=== PATIENT | female | born 1970 | race Caucasian/White ===

== ENCOUNTER 2018-01-16 12:01 | Outpatient (REF) | payer BC, SELFPAY ==
[2018-01-16 19:30] LABS: TSH (W/Ref FT4) 2.84 uIU/mL (0.358-3.74)
== END 2018-01-16 12:21 ==
LOC: NCHCN 12:01
PROVIDERS: PCP Family Medicine; Visit Provider Family Medicine
DX: E03.9 Hypothyroidism, unspecified (principal)
CPT/HCPCS: 84443

== ENCOUNTER 2018-02-14 00:24 | Outpatient (CLI) | payer BC, SELFPAY ==
--- NOTE | 2018-02-14 09:16 | DI.MAMMO_ITS ---
SYMPTOM/DIAGNOSIS: SCREENING, Z12.31 BILATERAL SCREENING MAMMOGRAM: Mammograms were interpreted according to the usual protocol including computer analysis with CAD system, tomosynthesis and C view imaging. Comparison is made with exams from 2015 and 2017. The breasts are composed of scattered fibroglandular densities, breast density category B. No suspicious masses or suspicious microcalcifications are seen. There has been no significant change. IMPRESSION: Category 1-B, negative mammogram. Yearly screening mammography is recommended. [facility] ASSESSMENT OF FINDINGS: Negative. Category 1. Patient will receive a letter notifying them of these results. BI-RADS category B. There are scattered areas of fibroglandular density.
== END 2018-02-14 00:44 ==
PROVIDERS: PCP Family Medicine; Visit Provider Family Medicine
DX: Z12.31 Encounter for screening mammogram for malignant neoplasm of breast (principal)
CPT/HCPCS: 77063; 77067

== ENCOUNTER 2019-01-23 11:49 | Outpatient (REF) | payer OTHER, SELFPAY ==
[2019-01-23 18:35] LABS: Hemoglobin A1C 5.4 % (4.5-6.2)
[2019-01-23 18:41] LABS: Calculated LDL 104 mg/dL; Cholesterol 192 mg/dL (<200); HDL Cholesterol 79 mg/dL (40-60); TSH (W/Ref FT4) 1.63 uIU/mL (0.36-3.74); Triglyceride 49 mg/dL (<150)
== END 2019-01-23 12:09 ==
LOC: NCHCN 11:49
PROVIDERS: PCP Family Medicine; Visit Provider Family Medicine
DX: E03.9 Hypothyroidism, unspecified (principal); Z00.00 Encounter for general adult medical examination without abnormal findings; Z13.220 Encounter for screening for lipoid disorders
CPT/HCPCS: 80061; 83036; 84443

== ENCOUNTER 2019-09-15 13:13 | Emergency (ER) | payer OTHER, SELFPAY ==
[2019-09-15 13:24] VITALS: BP 165/90; PULSE 65; TEMP 36.4; O2SAT 99
--- NOTE | 2019-09-15 13:46 | PDOC.CMSAFED ---
- If Service Date Differs Date of service: 09/15/19 Time of Service: 13:46 Care Management Safety Plan Chief Complaint: Alexandria is a 49 year old female who resides in [facility] with her , Jhon. She has a history of 2 psychotic episodes and is not currently on any psychiatric medications. Today, she presents in the emergency department to have recent behavioral changes evaluated. She denies suicidal or homicidal thoughts to ED staff, but reports experiencing many stressors. CM will respond to ED to assess patient after patient has been medically cleared and assessed by screener. If screener deems patient meets criteria for psychiatric stabilization CM will facilitate interdepartmental huddle with [facility] screener for safety planning considerations and meet with patient to review [facility] policy and safety plan, establish individual wishes for treatment and maintain patient rights. In the interim; please note safety plan below to guide patient care while awaiting further assessment in the ED. SAFETY PLAN: 1. Will remain on suicide precautions and in paper clothes. 2. Will remain in room under direct supervision of one-on-one staff at all times provided by [employer], QUIN, [employer] child protective investigator. 3. May have paper cups, plates, finger foods as well as a cardboard spoon with which to eat meals. 4. Follow [facility] Management of the Admitted Behavioral Health Patient policy. 5. Comfort bath system only. 6. No personal belongings 7. Visitors: No visitors at this time. 8. Activities: None currently. 8. No telephone privileges at this time. 9. Due to VOLUNTARY status, if patient wishes to leave [facility], the [facility] plant and equipment worker must be contacted to evaluate patient prior to patient exiting the building. If deemed appropriate for inpatient psychiatric care, safety plan will be established with patient, and care team, to adhere to patient goals, identify restrictions based on behavioral status, address nutrition, and determine allowed personal belongings, tools for hygiene and personal care. As well plan will determine level of activity including ambulation, level of supervision, visitors, and determine privileges based on level of acuity, behaviors and level of engagement by patient. DISPOSITION: Alexandria is evaluated by [facility] crisis screener. She is able to contract for safety and is discharged home.
--- NOTE | 2019-09-15 14:38 | ED.GENADUL_ITS ---
Discharge Plan Disposition Patient Disposition: HOME Condition: Stable Discharge Details Chief Complaint: PsychEval Clinical Impression: Mood change Primary Care Provider: Saige Campos ED Provider: Javier Patterson Home Meds and New Rx's Prescriptions: Continued lorazepam 0.5 mg Tablet 0.5 mg PO DAILY PRNRF: 0 levothyroxine 25 mcg Tablet 25 mcg PO DAILY RF: 0 loratadine [Claritin] 10 mg Tablet 10 mg PO DAILY RF: 0 No Action dextroamphetamine-amphetamine 30 mg Tablet 30 mg PO DAILY RF: 0 Discharge Instructions Additional Instructions: You are stable for discharge from the emergency department. Please follow-up with your regular doctor for recheck in the next 5 to 7 days time. Return if you develop racing thoughts, thoughts of harming yourself or others, or any other acute concerns. I recommend reviewing persistent use of the Adderall with your prescribing physician. Discharge Data Discharge Date/Time-TO BE ENTERED AT DEPARTURE: 09/15/19 16:31 Medical Decision Making <Renita Lincoln MD - Last Filed: 09/21/19 08:24> Alexandria Ray is a 49-year-old woman with a history of 2 psychotic episodes in the past not currently on any psychiatric medications presenting to the emergency department for evaluation for behavioral change after having counseling session this morning with her and mental health. Mental health states that they asked patient to come to the emergency department for medical clearance given that she had relatively recent treatment for dental infection and is scheduled for root canal. On exam patient is well and nontoxic-appearing. There is no emergent dental or intraoral pathology identified. She does have some flight of ideas and tangential conversation, however she makes note of this during conversation and seemed aware of it. She does have some pressured speech and seems excessively goal oriented. Concern for possible mild shari, no psychosis or suicidality on my exam. I doubt that patient is a danger to herself or to others at this time. Exam/history is not consistent with meningitis, encephalitis, acute emergent nonpsychiatric intracranial process, sepsis, ingestion/attempted self-harm. Plan for screening labs, mental health evaluation. Patient signed out to Dr. Patterson at time of shift change with labs, mental health evaluation pending. Medical Records Medical records reviewed: Yes I reviewed the patient's medical records. <Javier Patterson MD - Last Filed: 09/15/19 16:25> Received signout from Dr. Lincoln. Please see her note regarding details of patient's presentation, plan of care. Patient's medical screen examination reassuring. On my exam she has somewhat depressed speech but has cogent and linear thoughts. She has no acute medical condition. Patient was interviewed by divisional storekeeper of mental health screener and felt not to be a danger to herself or others. She was offered outpatient sources for follow-up. She is stable and appropriate for discharge at this time. HPI <Renita Lincoln MD - Last Filed: 09/21/19 08:24> General Mode of arrival: ambulatory . Date/Time Provider Initiated Documentation: 09/15/19 13:16 . Limitations to Documentation: no limitations . Information obtained by: patient, RN notes reviewed and old records reviewed . HPI Narrative: Alexandria Ray is a 49-year-old woman with a history of psychiatric issues in the past presenting to the emergency department for evaluation for change in behavior. Per mental health, patient's is concerned that patient may be having a psychotic break. He reports to mental health who discussed with me that patient had an episode of psychosis in her 20s that was treated with inpatient hospitalization and brief course of psychiatric medication. Patient did not like being on medication at that time and has taken no psychiatric medication since. Patient also had episode of psychosis that lasted for a few weeks approximately 5 years ago that patient believes was brought on by taking prednisone, episode resolved spontaneously. Patient reports that in May she was diagnosed with ADHD and was started on Adderall, which she reports has been helping her concentrate and get more work done. Patient also reports that in May she was diagnosed with a tooth infection, and took a course of antibiotics. Patient reports that she is scheduled to have a root canal in the future. She states that she has had no dental issues since finishing the course of antibiotics in May. Patient denies any pain, shortness of breath, cough, vomiting, diarrhea, numbness, weakness. She reports that she feels well in her usual state of health. 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 Patient denies auditory hallucinations, visual hallucinations, suicidal thoughts, homicidal thoughts. Patient reports that she has been sleeping somewhat less than usual, but generally getting more than 6 hours of sleep per night. She reports that she and her have both been drinking more heavily over the past few months, usually more than 3 drinks per night, and she is interested in cutting back. She reports that she uses marijuana daily. She denies any other recreational drug use. Related Data Home Medications Medication Instructions Recorded Confirmed dextroamphetamine-amphetamine 30 mg PO DAILY 09/15/19 09/17/19 levothyroxine 25 mcg PO DAILY 09/15/19 09/17/19 loratadine [Claritin] 10 mg PO DAILY 09/15/19 09/17/19 lorazepam 0.5 mg PO DAILY PRN 09/15/19 09/17/19 Allergies Allergy/AdvReac Type Severity Reaction Status Date / Time prednisone AdvReac Severe Psychosis Unverified 09/17/19 11:25 phenazopyridine AdvReac Unverified 09/17/19 11:25 [From Pyridium] promethazine [From Phenergan] AdvReac Unverified 09/17/19 11:25 General Stated Complaint: PsychEval VENICE: 2 Review of Systems <Renita Lincoln MD - Last Filed: 09/21/19 08:24> Narrative: Constitutional: denies fevers Eyes: denies eye pain ENT: denies ear pain, dental pain, sore throat Cardiovascular: denies chest pain Respiratory: denies SOB, cough GI: denies abdominal pain, vomiting, diarrhea : denies flank pain MSK: denies back pain, neck pain, arthralgias, myalgias Skin: denies rash Neuro: denies headaches, numbness, weakness Psych: Denies suicidal thoughts, homicidal thoughts, hallucinations PFS <Renita Lincoln MD - Last Filed: 09/21/19 08:24> Medical History (Updated 09/18/19 @ 13:47 by Curly Serrano) ADHD (Suspected) Social History Smoking/Tobacco Use Status: Former Tobacco Use Alcohol Intake: current Alcohol Intake frequency: 3 or more drinks per day Alcohol type: beer Drug use: Never Substance use type: marijuana Do you feel safe at home: Yes Do you feel safe in your relationship?: Yes History History 3 Para 2 Hx # Term Pregnancies 2 Multiple births Hx # Pregnancies Ectopic pregnancies AB induced Hx Number of Living Children 2 AB spontaneous 1 Exam <Renita Lincoln MD - Last Filed: 09/21/19 08:24> Narrative Exam Narrative: Constitutional: well and [id number], pleasant, conversing normally HENT: head atraumatic/normocephalic/normal inspection, mucous membranes moist, no intraoral lesion or edema, no dental abscess Eyes: conjunctiva normal, sclera normal, pupils 3mm b/l Neck: no stridor, normal ROM, trachea midline Resp: normal work of breathing, LCTAB Cardio: normal rate, normal rhythm, no murmur appreciated Skin: warm, dry, normal color, no rash Neuro: alert, not altered, grossly non-focal, normal tone, oriented x3 Ext: no edema Psych: normal mood, normal affect, normal behavior, flight of ideas, somewhat tangential conversation, mildly pressured speech, does have some insight into condition, no apparent psychosis, no apparent hallucinations Course <Renita Lincoln MD - Last Filed: 09/21/19 08:24> Vital Signs Vital signs: Vital Signs Temperature 36.4 C L 09/15/19 13:24 Pulse 65 09/15/19 13:24 Blood Pressure 165/90 H 09/15/19 13:24 Pulse Oximetry 99 09/15/19 13:24 Temperature 36.4 C L 09/15/19 13:24 Temperature Source Temporal Artery Scan 09/15/19 13:24 Pulse 65 09/15/19 13:24 Blood Pressure 165/90 H 09/15/19 13:24 Blood Pressure Position Sitting 09/15/19 13:24 Pulse Oximetry 99 09/15/19 13:24 Oxygen Delivery Method Room Air 09/15/19 13:24 Oxygen Flow Rate 0 09/15/19 13:24 Pain Level 0 09/15/19 13:24 Sign Out <Renita Lincoln MD - Last Filed: 09/21/19 08:24> Sign Out Data: Sign Out Comment: Patient signed out to Dr. Patterson at time shift change with labs, mental health evaluation, disposition pending. Last updated by Renita Lincoln MD at 09/15/19 14:51
[2019-09-15 14:44] LABS: Abs Immature Grans 0.01 k/cumm (0.0-0.09); Absolute Basophil Count 0.01 k/cumm (0.0-0.2); Absolute Eosinophil Count 0.05 k/cumm (0.0-0.7); Absolute Lymphocyte Count 1.52 k/cumm (1.2-3.4); Absolute Monocyte Count 0.69 k/cumm (0.11-0.7); Absolute Neutrophil Count 6.25 k/cumm (1.2-6.7); Basophils % 0.1; Eosinophils % 0.6; HCT 40.8 % (36.0-46.0); HGB 14.1 g/dL (12.0-15.5); Immature Grans % 0.1 %; Lymphocytes % 17.8; Mean Corp. HGB Concentration 34.6 g/dL (32.0-36.0); Mean Corpuscular Hemoglobin 33.6 pg (27.0-33.0); Mean Corpuscular Volume 97.1 fL (80-95); Monocytes % 8.1; Neutrophils % 73.3; Platelet Count 257 x1000/uL (130-400); RBC Distribution Width 12.6 % (11.7-14.6); White Blood Cell Count 8.53 k/cumm (4.4-10.8)
[2019-09-15 14:54] LABS: Bilirubin Negative (Negative); Blood Trace-intact (Negative); Clarity Clear (Clear); Glucose Negative (Negative); Ketones 15 mg/dL (Negative); Leukocyte Esterase Trace (Negative); Nitrite Negative (Negative); Specific Gravity 1.025 (1.005-1.025); Urobilinogen 0.2 EU/dL (Up TO 0.2)
[2019-09-15 15:04] LABS: ALT 28 U/L (14-59); AST 21 U/L (15-37); Albumin 4.3 g/dL (3.4-5.0); Alkaline Phosphatase 47 U/L (46-116); Anion Gap 9.5 mmol/L (3-11); BUN 11 mg/dL (7-18); Bilirubin, Total 0.9 mg/dL (0.2-1.0); CO2 27.5 mmol/L (21.0-32.0); Calcium 9.3 mg/dL (8.5-10.1); Chloride 100 mmol/L (98-107); Glucose 165 mg/dL (74-106); Potassium 3.8 mmol/L (3.5-5.1); Sodium 137 mmol/L (136-145); TSH 1.87 uIU/mL (0.36-3.74); Total Protein 8.1 g/dL (6.4-8.2)
[2019-09-15 15:09] LABS: Bacteria Moderate HPF (Negative); C & S Indicated? No/Sq. Contamination; Casts Negative LPF (Negative); Crystals Negative HPF (Negative); Epithelial Cells Many HPF (Negative); Mucus Heavy (Negative)
[2019-09-15 15:42] LABS: *AMPHETAMINES SCREEN URINE POSITIVE (Negative); *BARBITURATES SCREEN URINE Negative (Negative); *BENZODIAZEPINES SCREEN URINE Negative (Negative); Cannabinoids THC POSITIVE (Negative); Cocaine Screen,Urine Negative (Negative); METHADONE URINE SCREEN Negative (Negative); OPIATES URINE SCREEN Negative (Negative)
[2019-09-15 15:44] LABS: Tricyclic Antidepressants Negative (Negative)
== END 2019-09-15 16:31 | disposition home or self-care (01) ==
PROVIDERS: Student in an Organized Health Care Education/Training Program; Emergency Provider Emergency Medicine; PCP Family Medicine
DX: F90.9 Attention-deficit hyperactivity disorder, unspecified type (principal); Z56.1 Change of job; Z62.820 Parent-biological child conflict
CPT/HCPCS: 36415; 80053; 80307; 81025; 99283; 81003; 81015; 84443; 85025

== ENCOUNTER 2019-09-17 11:10 | Observation (INO) | payer OTHER, SELFPAY ==
[2019-09-17 11:17] VITALS: BP 151/87; PULSE 74; RESP 18; TEMP 36.5; O2SAT 98
--- NOTE | 2019-09-17 11:40 | W.ED.GENAD ---
Discharge Plan Disposition Patient Disposition: [facility] INPATIENT Condition: Stable Discharge Details Chief Complaint: PsychEval Clinical Impression: Shari Primary Care Provider: Saige Campos ED Provider: Javier Patterson Home Meds and New Rx's Prescriptions: No Action lorazepam 0.5 mg Tablet 0.5 mg PO DAILY PRNRF: 0 levothyroxine 25 mcg Tablet 25 mcg PO DAILY RF: 0 dextroamphetamine-amphetamine 30 mg Tablet 30 mg PO DAILY RF: 0 loratadine [Claritin] 10 mg Tablet 10 mg PO DAILY RF: 0 Medical Decision Making 49-year-old female with mood disruption and some shari for which she was evaluated in the emergency department on September 14. Labs were obtained at that time as part of medical screening examination and her CBC and chemistries were reassuring. She reports having a break in her late 20s and being placed on Depakote and Risperdal. She is currently taking Adderall, Claritin, levothyroxine. She returns today seeking voluntary admission to psychiatric facility. She underwent recurrent medical screening examination and I do not feel repeat blood work is needed but will order a preliminary COVID 19 screen as well as repeat UDS. It is noted that the patient wrote to the hospital in a private vehicle where the regional company flatbed truck driver had recently been to the [facility]. Patient evaluated by mental health and does seem to have some shari. She does not meet criteria for involuntary admission but does wish to proceed with voluntary admission. The patient may require observation at [facility] pending negative COVID screening in order to obtain appropriate final disposition to psychiatric facility. Lab Data Lab results reviewed: Yes I reviewed the patient's lab results. Labs: Laboratory Results - last 24 hr 09/17/19 11:41 Urine Opiates Screen Negative Urine Methadone Screen Negative Ur Barbiturates Screen Negative Ur Tricyclics Screen Negative Ur Amphetamines Screen Positive A U Benzodiazepines Scrn Negative Urine Cocaine Screen Negative Ur THC Screen Positive A HPI General Mode of arrival: ambulatory. Date/Time Provider Initiated Documentation: 09/17/19 11:12. Limitations to Documentation: no limitations. Information obtained by: patient. History of Present Illness 49 year old F presents to the emergency department with the chief complaint of Referred by [facility] for voluntary admission, described as moderate, Quality is described as constant, Patient started experiencing this day(s) and it has been constant. No relieving factors improve symptom(s), No exacerbating factors reported . Patient notes other (No suicidality, no recent illness, no fever, cough, shortness of breath); denies cough, fever/chills and shortness of breath. Patient did receive the following treatments prior to arrival, none Related Data Home Medications Medication Instructions Recorded Confirmed dextroamphetamine-amphetamine 30 mg PO DAILY 09/15/19 09/17/19 levothyroxine 25 mcg PO DAILY 09/15/19 09/17/19 loratadine [Claritin] 10 mg PO DAILY 09/15/19 09/17/19 lorazepam 0.5 mg PO DAILY PRN 09/15/19 09/17/19 Allergies Allergy/AdvReac Type Severity Reaction Status Date / Time prednisone AdvReac Severe Psychosis Unverified 09/17/19 11:25 phenazopyridine AdvReac Unverified 09/17/19 11:25 [From Pyridium] promethazine [From Phenergan] AdvReac Unverified 09/17/19 11:25 General Stated Complaint: PsychEval VENICE: 2 Review of Systems Narrative: Some flight of ideas and racing thoughts. No thoughts of suicidality. Was seen in the emergency department on September 14 with medical screening performed. 6 systems reviewed and otherwise negative [facility] Social History Smoking/Tobacco Use Status: Former Tobacco Use Alcohol Intake: current Alcohol Intake frequency: 3 or more drinks per day Alcohol type: beer Drug use: Never Substance use type: marijuana Do you feel safe at home: Yes Do you feel safe in your relationship?: Yes Exam Narrative Exam Narrative: GEN: awake, alert, oriented 3. Pleasant, well groomed, interactive. HEAD: Normocephalic, atraumatic ENT: Mucous membranes moist, oropharynx unremarkable, External ear exam unremarkable EYES: PERRL, EOMI NECK: Full ROM, no IRMA, no menigismus CHEST/RESP: Nontender, clear to auscultation bilateral, no wheeze/rhonchi/rales CARDIOVASCULAR: RRR, no murmur, rub anahi. 2+ Rad pulse bilateral ABDOMEN: Soft, nontender, no mass. +Bowel sounds EXT: Full ROM, no edema, no rash Neuro: Grossly normal neurologic exam, conversant, interactive. Psych: Speech fluent, affect somewhat animated with some pressured speech Course Vital Signs Vital signs: Vital Signs Temperature 36.5 C 09/17/19 11:17 Pulse 74 09/17/19 11:17 Respiratory Rate 18 09/17/19 11:17 Blood Pressure 151/87 H 09/17/19 11:17 Pulse Oximetry 98 09/17/19 11:17 Temperature 36.5 C 09/17/19 11:17 Temperature Source Temporal Artery Scan 09/17/19 11:17 Pulse 74 09/17/19 11:17 Respiratory Rate 18 09/17/19 11:17 Respiratory Effort Non-Labored 09/17/19 11:24 Blood Pressure 151/87 H 09/17/19 11:17 Blood Pressure Position Sitting 09/17/19 11:17 Pulse Oximetry 98 09/17/19 11:17 Oxygen Delivery Method Room Air 09/17/19 11:17 Oxygen Flow Rate 0 09/17/19 11:17
[2019-09-17 12:01] LABS: Tricyclic Antidepressants Negative (Negative)
[2019-09-17 12:12] LABS: *AMPHETAMINES SCREEN URINE POSITIVE (Negative); *BARBITURATES SCREEN URINE Negative (Negative); *BENZODIAZEPINES SCREEN URINE Negative (Negative); Cannabinoids THC POSITIVE (Negative); Cocaine Screen,Urine Negative (Negative); METHADONE URINE SCREEN Negative (Negative); OPIATES URINE SCREEN Negative (Negative)
--- NOTE | 2019-09-17 12:45 | PDOC.MHCN ---
Date of service: 09/17/19 Time of Service: 15:19 Mental Health Crisis Note Presenting Issue How did you arrive at the ED and why did you come: Alexandria arrived today via her friends after they had an intervention with her. She is feeling manic and is willing to accept treatment today. Precipitating Factors Alexandria is not SI or HI but there is a disorganization in her thought process that has become even greater since being screened two days ago. Disposition BEHAVIOR: Alexandria is friendly but her speech is really rapid and metaphorically or blaming of her for her current situation referencing that he is not really listening to her. She is willing to accept treatment today because her friends were more understanding and supportive. She uses her hands a lot to speak. EYE CONTACT: Eye contact is intense. MOOD: Alexandria is presenting as being in a manic episode and needs some stabilization. AFFECT: Affect is labile. APPETITE: Alexandria is reported to have lost 33 lbs in the last several weeks. SLEEP(trouble falling/staying asleep: Sleep was not discused but it does not appear that she would be sleeping well. Plan Kimberly has agreed to an referral to a psychiatric hospital. This was discussed with Dr. Patterson. Signature Clinician's Name/Title: Chioma De Los Santos MS, [facility] Emergency Services Clinician
[2019-09-17 13:29] VITALS: BP 145/88; PULSE 63; RESP 18; TEMP 37; O2SAT 100
--- NOTE | 2019-09-17 14:35 | PDOC.CMSAFED ---
- If Service Date Differs Date of service: 09/17/19 Time of Service: 14:36 Care Management Safety Plan Chief Complaint: Alexandria is a 49 year old female who lives in [facility] with her , Jhon, and their 2 children. Alexandria shares her son has had challenging behaviors lately and is temporarily living with her parents in [place], but her 11 year old daughter is at home with her . 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 When asked about her hobbies, she states she enjoys reading, listening to podcasts by Wilder De Jesus, and doing yoga, and tells CM she brought her yoga mat with her to the hospital in the event she would be allowed to do yoga. She talks at great length about her and their marriage and how she frequently feels unsupported by him. The couple is currently in therapy with Curly Nova. She states she is here at [facility] because she wants her life to stabilize. She further shares she was recently diagnosed with ADHD and is angry at the fact it took years for her to get that diagnosis. VOLUNTARY FOR INPATIENT PSYCHIATRIC STABILIZATION. Patient is appropriate in all interactions since arriving at [facility]; Pt has demonstrated appropriate coping and communication skills, has articulated her needs and concerns and is fully engaged during staff interactions. Safety plan has been established with patient, and care team, to adhere to patient goals, identify restrictions based on behavioral status, address nutrition, and determine allowed personal belongings, tools for hygiene and personal care. Determine level of activity including ambulation, level of supervision, visitors, and determine privileges based on behaviors and level of engagement by pt. SAFETY PLAN: 1. Will remain on suicide precautions. In Paper Clothes 2. Will remain in room under direct supervision of one-on-one staff at all times provided by [employer]; QUIN, [employer] OPER[employer] nutritional services director. 3. May have paper cups, plates, finger foods as well as a metal spoon with which to eat meals. [facility] staff are responsible for removing the spoon once patient is done eating. 4. Follow [facility] Management of the Admitted Behavioral Health Patient policy. 5. Comfort bath system only while in the ED; will be allowed to shower with supervision if moved to Med/Surg. 6. Personal belongings: Patient is allowed to have her reading glasses and the books she brought from home. 7. Visitors-No visitors at this time 8. Activities: Soft tip markers, paper, books, and other activities at nursing discretion. 9. Bathroom privileges: While in the ED, must be accompanied by staff. If patient is moved to Med/Surg, she will be allowed to use the bathroom in her room without supervision. 10. Phone: No phone privileges at this time. 11. Due to VOLUNTARY status, if patient wishes to leave [facility], the [facility] workers compensation coordinator must be contacted to re-evaluate patient prior to patient exiting the building. Patient is currently voluntarily at [facility] and seeking inpatient admission when a bed becomes available. [facility] Frontline Outreach Team Member will continue seeking placement. Please contact the Decorator Consultant Band Instrument Repairer ([phone]) and [facility] Outreach Team Member ([phone]) for any needed changes in the Safety Plan. Safety plan has been provided to interdepartmental care team.
[2019-09-17 16:49] VITALS: BP 145/88; PULSE 63; RESP 18; TEMP 37; O2SAT 100
[2019-09-17 17:00] VITALS: BP 115/82; PULSE 87; RESP 18; TEMP 36.6; O2SAT 100
[2019-09-17 18:31] VITALS: BP 124/82; TEMP 36.7
--- NOTE | 2019-09-17 18:49 | W.PM.HP.N ---
Date of service: 09/17/19 Time of Service: 18:49 Assessment and Plan Assessment and plan (1) Brianna: Status: Acute Assessment and plan: observation status at [facility] while awaiting her COVID 19 nasopharyngeal swab results. The patient herself has no symptoms referrable to COVID-19 but she was driven to the hospital by a friend who recently returned to [place] from [place]. The patient has been referred to [facility] for inpatient psychiatric assessment and treatment per my conversation w/ Dr. Javier Patterson, emergency medicine attending. The patient is admitted under voluntary status. (2) Mood change: Status: Acute History of Present Illness History of Present Illness Chief Complaint: Brianna Narrative: 49-year-old female with a history of previous psychotic episodes who is not currently being managed with any anti-psychotic medications presents with symptoms of brianna. She was seen in the emergency room on September 15, 2019 for evaluation of behavioral changes after she had had a counseling session that morning with her and a mental health specialist. Patient was referred to the emergency department for medical clearance after the patient had recent treatment for dental infection and is scheduled for root canal. At that time Dr. Cindi Lincoln evaluate the patient found the patient to have flight of ideas and tangential conversation but during the conversation the patient seem to be aware of that of her behavior. Patient had no acute psychosis or suicidality on exam. Medical screening exam was negative. Patient was screened by mental health screener not felt to be in danger to herself. She was offered outpatient follow-up and was discharged from the emergency department. Patient's comorbidities include a diagnosis that she reports included ADHD for which she was prescribed Adderall in May. She reports she has had previous psychosis that lasted for several weeks about 5 years ago that she thought was brought on by prednisone. Patient's had additional stressors including the recent dental infection for which she was treated with antibiotics in May and is scheduled now for a root canal. She has had some behavioral relationship difficulties with her son. She is reported that she and her have been drinking more heavily over the last few months drinking more than 3 drinks per night and that she is interested in cutting back. She denies recreational drug use other than daily use of marijuana. Her other medical issues include hypothyroidism for which she takes levothyroxine. She is now admitted under a voluntary status and is currently being screened for COVID-19 although she has no symptoms. Dr. Javier Patterson, emergency room physician evaluated her this afternoon and feels that she is medically cleared. He indicated that [facility] is willing to accept the patient if her COVID-19 screen is negative. The patient came to the hospital today at the urging of two of her close friends who felt that she was not making any sense in her conversations and the patient indicated that she trusts these friends to make the right decisions for her. She says that they told her that she was not acting right. Prior to today the patient had been evaluated in the ER on 09/14 after being brought here by her . Review of Systems Neurologic Neurologic: Reports behavioral changes Psychiatric Psychiatric: Reports abnormal sleep pattern, Reports anxiety, Reports behavioral changes, Reports difficulty concentrating, Denies auditory hallucinations, Denies hopelessness, Reports mood swings, Denies panic attacks, Denies visual hallucinations, Denies hallucinations, Denies tactile hallucinations, Denies homicidal ideation and Denies suicidal ideation [facility] Social History Smoking/Tobacco Use Status: Former Tobacco Use Alcohol Intake: current Alcohol Intake frequency: 3 or more drinks per day Alcohol type: beer Drug use: Never Substance use type: marijuana Do you feel safe at home: Yes Do you feel safe in your relationship?: Yes History History 3 Para 2 Hx # Term Pregnancies 2 Multiple births Hx # Pregnancies Ectopic pregnancies AB induced Hx Number of Living Children 2 AB spontaneous 1 Meds Home Medications and Allergies Home Medications Medication Instructions Recorded Confirmed Type dextroamphetamine-amphetamine 30 mg PO DAILY 09/15/19 09/17/19 History levothyroxine 25 mcg PO DAILY 09/15/19 09/17/19 History loratadine [Claritin] 10 mg PO DAILY 09/15/19 09/17/19 History lorazepam 0.5 mg PO DAILY PRN 09/15/19 09/17/19 History Allergies Allergy/AdvReac Type Severity Reaction Status Date / Time prednisone AdvReac Severe Psychosis Unverified 09/17/19 11:25 phenazopyridine AdvReac Unverified 09/17/19 11:25 [From Pyridium] promethazine [From Phenergan] AdvReac Unverified 09/17/19 11:25 Exam Const General: cooperative, healthy appearing, well developed, well groomed, anxious and well hydrated Nutritional Appearance: average body habitus Orientation: alert, awake and oriented x3 [facility] Head: normal to inspection, normocephalic and atraumatic Ears: hearing grossly normal bilaterally Neck Neck: normal visual inspection, full ROM, no lymphadenopathy, trachea midline and supple Thyroid: thyroid normal Carotids: normal carotid upstroke Lymphatic: no lymphadenopathy noted Chest Chest: normal inspection of the chest Resp Effort & Inspection: normal respiratory effort and able to speak in complete sentences Auscultation: clear to auscultation bilaterally Cardio Jugular venous pressure: no JVD Palpation: normal PMI Rate: regular rate Rhythm: regular rhythm Heart Sounds: S1 normal, S2 normal, normal, physiologic split S2, no gallops, no murmurs and no rubs Pulses: brachial pulses present, radial pulses present and normal peripheral pulses GI Inspection: normal to inspection Palpation: soft and no hepatosplenomegaly Percussion: normal to percussion Auscultation: normal bowel sounds Back/Spine/Pelvis Back: no CVA tenderness Cervical Spine: normal cervical lordosis Thoracic/Lumbar Spine: thoracic and lumbar spine normal to inspection Skin General skin exam: dry skin and other (scaly patchs of skin over extensor surfaces of both elbows) Rashes: rashes noted (both elbows) Trauma: no lacerations or abrasions Hair: normal Nails: normal Neuro General: patient alert, patient awake, patient oriented x3, moves all extremities, normal light touch, pain and propioception and no focal motor deficits Extrem General: full ROM, capillary refill normal, normal exam except as noted, no joint enlargement, no clubbing, cyanosis or edema, no pedal edema and no calf tenderness Psych Appearance: grossly normal Mental Status: mental status grossly normal Speech and Movement: agitated and pressured speech Mood: manic mood Affect: animated Attitude: cooperative Thought Process: flight of ideas Thought Content: normal Insight: fair Judgment: fair Results Labs Labs: Laboratory Results - last 24 hr 09/17/19 11:41 Urine Opiates Screen Negative Urine Methadone Screen Negative Ur Barbiturates Screen Negative Ur Tricyclics Screen Negative Ur Amphetamines Screen Positive A U Benzodiazepines Scrn Negative Urine Cocaine Screen Negative Ur THC Screen Positive A Last Vital Signs Temp 36.7 C 09/17/19 18:31 Pulse 63 09/17/19 16:49 Resp 18 09/17/19 16:49 BP 124/82 09/17/19 18:31 Pulse Ox 100 09/17/19 16:49 COVID-19 Screening Have you,or household,traveled outside [place] in last 14 days?: Yes Had IN PERSON contact w/suspected or confirmed C-19 person: No
[2019-09-18] MEDS: Levothyroxine 25 MCG TAB PO (06:50)
[2019-09-18 06:54] VITALS: BP 115/82; PULSE 87; RESP 18; TEMP 36.6; O2SAT 100
[2019-09-18 08:28] LABS: COVID-19 RT-PCR UVMMC Result Negative (Negative)
[2019-09-18] MEDS: Loratidine 10 MG TAB PO (08:42)
--- NOTE | 2019-09-18 09:17 | PDOC.CMPRO ---
- If Service Date Differs Date of service: 09/18/19 Time of Service: 09:17 Care Management Progress Note VOLUNTARY FOR INPATIENT PSYCHIATRIC STABILIZATION. Patient has determined that she will be discharged home and not go to placement. She states she is feeling better and does not want to go to [facility]. Patient is appropriate in all interactions since [facility]; Pt has demonstrated appropriate coping and communication skills, has articulated her needs and concerns and is fully engaged during staff interactions. Safety plan has been established with patient, and care team, to adhere to patient goals, identify restrictions based on behavioral status, address nutrition, and determine allowed personal belongings, tools for hygiene and personal care. Determine level of activity including ambulation, level of supervision, visitors, and determine privileges based on behaviors and level of engagement by pt. SAFETY PLAN: 1. Will remain on suicide precautions. In Paper Clothes 2. Will remain in room under direct supervision of one-on-one staff at all times provided by [employer]; QUIN, SOCCER BALL ASSEMBLER director of critical care. 3. May have paper cups, plates, finger foods as well as a metal spoon with which to eat meals. [facility] staff are responsible for removing the spoon once patient is done eating. 4. Follow [facility] Management of the Admitted Behavioral Health Patient policy. 5. Comfort bath system only while in the ED; will be allowed to shower with supervision if moved to Med/Surg. 6. Personal belongings: Patient is allowed to have her reading glasses and the books she brought from home. 7. Visitors-No visitors at this time 8. Activities: Soft tip markers, paper, books, and other activities including pen, yoga mat, tablet for music, and self help programs, she may also have her journal. Activities are based on level of engagement and at the discretion of staff with regards to appropriate behavior and patient and staff safety. 9. Bathroom privileges: While in the ED, must be accompanied by staff. If patient is moved to Med/Surg, she will be allowed to use the bathroom in her room without supervision. 10. Phone: No phone privileges at this time. 11. Due to VOLUNTARY status, if patient wishes to leave [facility], the [facility] athletic turf worker must be contacted to re-evaluate patient prior to patient exiting the building. Bed status update - faxed negative COVID results and updated clinicals to [facility]. CM reviewed updates with [facility] via telephone. Zoom Meeting at with [facility], [facility] Patient is currently voluntarily at [facility] and seeking inpatient admission when a bed becomes available. [facility] Frontline Customer Advisor Specialist will continue seeking placement. Please contact the [employer] Document Image Technician ([phone]) and [facility] Customer Advisor Specialist ([phone]) for any needed changes in the Safety Plan. Safety plan has been provided to interdepartmental care team.
[2019-09-18 10:52] LABS: Bilirubin Negative (Negative); Blood Trace-intact (Negative); Clarity Clear (Clear); Glucose Negative (Negative); Ketones Negative (Negative); Leukocyte Esterase Negative (Negative); Nitrite Negative (Negative); Specific Gravity >= 1.030 (1.005-1.025); Urobilinogen 0.2 EU/dL (Up TO 0.2)
[2019-09-18 11:04] LABS: Bacteria Negative HPF (Negative); C & S Indicated? No; Casts Negative LPF (Negative); Crystals Negative HPF (Negative); Epithelial Cells Few HPF (Negative); Mucus Moderate (Negative); RBC 0-2 HPF (0-2)
--- NOTE | 2019-09-18 11:57 | PHA.REVIEW ---
Pharmacy Admission Review - Admission Clinical Review (Last Reviewed 09/17/19 @ 22:55 by Curly Serrano) Mood change (Acute) Brianna (Acute) prednisone Adverse Reaction (Severe, Unverified 09/17/19 11:25) Psychosis phenazopyridine [From Pyridium] Adverse Reaction (Unverified 09/17/19 11:25) promethazine [From Phenergan] Adverse Reaction (Unverified 09/17/19 11:25) Height 5 ft 7.75 in Weight 71.668 kg - Renal Dosing Medications needing adjustments: Reviewed - BP Control BP Control: Blood Pressure 115/82 If elevated: Reviewed - Home Meds Home Med List reviewed: Reviewed Relevent Home Meds Not ordered & why?: Adderall 30 mg po QD
--- NOTE | 2019-09-18 12:25 | W.NUTRFU ---
Date of service: 09/18/19 Time of Service: 12:25 Nutritional Follow up NOTE: 49 year old female admitted with mood /shari disorder. Following regular diet with excellent intake. Not at risk for nutritional decline at this time. Time Spent in Nutritional Counseling and Treatment: 0
--- NOTE | 2019-09-18 13:03 | W.PM.DS.N ---
Date of service: 09/18/19 Time of Service: 13:03 DS: Diagnosis Discharge Diagnosis (1) Shari: Status: Suspected Asessment and Plan: No formal diagnosis of bipolar disorder or shari has been made. A lot of her features from her ADHD overlap with those of shari. Patient will need to follow-up with a formal psychiatry evaluation as an outpatient. At this time no mood stabilizing drugs have been prescribed. Patient is to receive an outpatient appointment with the psychiatric nurse practitioner at [facility] who should be working with her collaborating psychiatrist or a psychiatrist at [facility]. (2) Mood change: Status: Acute (3) ADHD: Status: Suspected Asessment and Plan: Patient should discuss with her primary care provider whether or not her Adderall dose needs to be weaned or even discontinued. Discharge Plan Disposition Patient Disposition: HOME Condition: Improving Discharge Details Chief Complaint: PsychEval Clinical Impression: Shari Reason For Visit: SHARI Admit Date/Time: 09/17/19 14:37 Admit Provider: Curly Serrano Attending Provider: Curly Serrano Primary Care Provider: Saige Campos ED Provider: Javier Patterson Hospital Course Hospital Course: 49-year-old female with a recent diagnosis of ADHD who is been on Adderall and reportedly has had prior episodes of psychosis that presented with shari now presented to the emergency department voluntarily seeking mental health help. Patient states that she came to emergency department couple days prior was evaluated and screened by mental health officials and felt to be safe to return home. However at the urging of 2 of her friends she re-presented to the emergency department for reevaluation because of symptoms of restlessness poor sleep agitation and flight of ideas. She is a very hyperactive person by her own admission. She does have hypothyroidism for which she takes levothyroxine but screening lab work did not show any evidence of hyperthyroid state. She underwent a medical screening evaluation by 2 different ER physicians and found to have no acute medical issues to explain her symptoms. She was admitted to the hospital under voluntary status awaiting evaluation by psychiatrist. Patient's had a number of stressors lately including marital discord in which she feels unsupported by her and dealing with her mental health issues and she and her are currently in therapy. She has had some behavioral issues with her son who is now staying with his grandparents in [place]. 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 She felt that she needed to get her life back balance and agreed to come into the hospital for potential psychiatric admission. Since that time she has been evaluated by mental health workers from [facility] and deemed not to require inpatient treatment. Patient would like to return home at this time and will be closely followed up through [facility] and provided with an urgent appointment with the psychiatric nurse practitioner. Home Meds and New Rx's Prescriptions: No Action lorazepam 0.5 mg Tablet 0.5 mg PO DAILY PRNRF: 0 levothyroxine 25 mcg Tablet 25 mcg PO DAILY RF: 0 dextroamphetamine-amphetamine 30 mg Tablet 30 mg PO DAILY RF: 0 loratadine [Claritin] 10 mg Tablet 10 mg PO DAILY RF: 0 Discharge Instructions Instructions: Mood Disorders (DC), ADHD in Adults (DC), Anxiety (DC) Stand Alone Forms: Nursing Discharge Form Referrals: Saige Campos MD [Primary Care Provider] - 10/07/19 3:10 pm () Activity:: Activity as Tolerated Equipment/Supplies:: No Equipment Needed Diet:: Normal Diet Discharge Orders Discharge Orders: Discharge Order (Routine); Ordered 09/18/19 Ordered By: Curly Serrano DS: Summary Status at Discharge Functional status at discharge: independent ambulation Overall status at discharge: patient is back to baseline Mental Status: mental status grossly normal Speech and Movement: speech and movement normal Mood: congruent mood Affect: normal affect Exam Narrative Exam Narrative: Patient is much more calm and focused today. She showed me a detailed list of contacts and resources that she has for when she leaves the hospital. She is going to be staying with a close friend upon discharge since she does not feel she is getting adequate support from her at this time. She did not exhibit any homicidal or suicidal ideation and had no delusions. I think she is mentally stable for outpatient follow-up. Psych Mental Status: mental status grossly normal Speech and Movement: speech and movement normal Mood: congruent mood Affect: normal affect DS: Data Vitals/I&O Vitals and I&O: Vital Signs Temperature 36.6 C 09/18/19 06:54 Temperature Source Tympanic 09/18/19 06:54 Pulse 87 09/18/19 06:54 Pulse Rhythm Regular 09/18/19 09:59 Respiratory Rate 18 09/18/19 06:54 Respiratory Effort Non-Labored 09/18/19 09:59 Respiratory Depth Normal 09/18/19 09:59 Respiratory Pattern Normal 09/18/19 09:59 Blood Pressure 115/82 09/18/19 06:54 Blood Pressure Position Sitting 09/17/19 11:17 Pulse Oximetry 100 09/18/19 06:54 Oxygen Delivery Method Room Air 09/18/19 06:54 Oxygen Flow Rate 0 09/18/19 06:54 Pain Level 0 09/18/19 06:54 Comment 09/17/19 19:34 Intake & Output 09/17/19 09/18/19 09/18/19 23:59 11:59 23:59 Intake Total 250 / 250 1020 / 1020 Balance 250 / 250 1020 / 1020 Weight 71.668 kg Intake: Oral 250 / 250 1020 / 1020 Other: Urine Color Yellow Yellow Urine Appearance Clear Clear Voiding Methods Toilet Toilet Data Completed and Pending Labs on day of discharge: Labs from last 24 hours 09/18/19 09/17/19 10:05 11:29 Urine Color Yellow Urine Clarity Clear Urine pH 7.0 Ur Specific [place] >= 1.030 H Urine Protein Negative Urine Ketones Negative Urine Blood Trace-intact H Urine Nitrite Negative Urine Bilirubin Negative Urine Urobilinogen 0.2 Ur Leukocyte Esterase Negative Urine RBC 0-2 Urine WBC 3-5 Ur Epithelial Cells Few Urine Crystals Negative Urine Bacteria Negative Urine Casts Negative Urine Mucus Moderate Ur Culture Indicated? No Urine Glucose Negative COVID-19 PCR Negative Nasopharyn COVID-19 PCR Not Applicable Ref Test Perform Site [facility] lab [facility] Social History Smoking/Tobacco Use Status: Former Tobacco Use Alcohol Intake: current Alcohol Intake frequency: 3 or more drinks per day Alcohol type: beer Drug use: Never Substance use type: marijuana Do you feel safe at home: Yes Do you feel safe in your relationship?: Yes History History 3 Para 2 Hx # Term Pregnancies 2 Multiple births Hx # Pregnancies Ectopic pregnancies AB induced Hx Number of Living Children 2 AB spontaneous 1
--- NOTE | 2019-09-18 13:41 | PDOC.CMPRO ---
- If Service Date Differs Date of service: 09/18/19 Time of Service: 13:41 Care Management Progress Note S/O: Alexandria has decided she does not want to seek voluntary placement and that she feels safe returning home. She states that she was able to sleep through the night and that she feels that her thoughts are clearer. She states that she is willing to see a nurse practitioner for medication adjustment and contact mental health throughout the weekend. She states she has good support from her friends and names several that would be willing to stay with her. Alexandria is able to articulate her thoughts and her struggles with ADHD and her ability to focus and complete tasks. She states she does have a self help routine daily which includes yoga She states that she was started on Adderol in May by and she feels that she has been able to be more focused and complete task since then. She does CM contacted her spouse Tim and he states that he will not be there when she returns home that he is taking their daughter and leaving. Spouse states that he is done with her and if she does not go to treatment he can no longer stay in the home with the children. 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 CM asked is Alexandria has even been abusive or harmed him or the children in the past Tim states that she has never harmed them. Tim states that he will not be there when Alexandria comes home and that he needs a few hours to leave with his daughter. Tim refused to pick Alexandria up from the hospital. Again CM asked if he felt that she would hurt him or the children of ever has and he states no Alexandria has not ever been abusive. CM followed up with Friend Tiffany with Alexandria's permission and signed HIPPA form. Attempting to a create a safe discharge plan with friends. Tiffany states that the couple have a difficult marriage and that things have gotten worse. She states she wants the two of them to talk. CM set up a phone call, Tim did not answer. CM reached back out to the spouse and the two were able to connect and create a plan. Alexandria will be picked up by. She will stay with her friend Cesilia who will bring her home to black pickler her belongings and then she will go stay with her friend for a few days. CM provided contact number for [facility], and reviewed the entire plan with Alexandria with repeat back. P: Alexandria will follow up with with [facility] twice a day over the weekend. She will be scheduled with Nurse Practitioner at [facility] and [facility] will submit the referral. Alexandria will be picked up by her friend Cesilia at time of discharge.
== END 2019-09-18 14:50 | disposition home or self-care (01) ==
LOC: ER 14:52 → MS 16:55
PROVIDERS: Admitting Provider Internal Medicine; Emergency Provider Emergency Medicine; PCP Family Medicine; Visit Provider Internal Medicine
DX: F30.10 Manic episode without psychotic symptoms, unspecified (principal); F90.2 Attention-deficit hyperactivity disorder, combined type; Z79.899 Other long term (current) drug therapy; Z11.59 Encounter for screening for other viral diseases
CPT/HCPCS: 80307; 81025; 99238; 99285; U0003; 81003; 81015; 99217; 99283; G0378

== ENCOUNTER 2020-03-01 01:39 | Outpatient (CLI) | payer OTHER, SELFPAY ==
--- NOTE | 2020-03-01 | DI.MAMMO_ITS ---
EXAM: MG MAMMO SCREENING CLINICAL HISTORY: SCREENING, Z12.31 TECHNIQUE: Mammograms were interpreted according to the usual protocol including computer analysis w [employer] CAD system, tomosynthesis and C-view imaging. COMPARISON: FINDINGS: The breasts are heterogeneously dense. No dominant mass or clumped microcalcification is identified in either breast. The current examination is compared with previous examinations including February 2018 and there has been no gross interval change in appearance in comparison with the prior studies. IMPRESSION: No specific evidence of malignancy at this time. Routine screening examinations are suggested at yea rly intervals in this age group according to the ACS ACR guidelines. BI-RADS Category 1 - Negative Breast Density - Category C - Heterogeneously dense
== END 2020-03-01 01:59 ==
PROVIDERS: PCP Nurse Practitioner Family; Visit Provider Nurse Practitioner Family
DX: Z12.31 Encounter for screening mammogram for malignant neoplasm of breast (principal)
CPT/HCPCS: 77063; 77067

== ENCOUNTER 2020-03-17 11:22 | Outpatient (REF) | payer OTHER, SELFPAY ==
--- NOTE | 2020-03-17 09:57 | PAPFT_PTH ---
PATIENT: Alexandria Ray LOC: NCN #:[id number] AGE/SX: 49/F ROOM: RE03/17/[address]: Anaid Denny : 1970 BED: DIS: 03/17/2020 SPEC #: [id number] RECD: 03/17/20 12:52 STATUS: THUAN RERiley #: [id number] MIGUEL: 03/17/20 09:[address]: Anaid Denny DEPT: [facility] Cytology RECD BY: Edel Burch Tissues: 1 - CX/ENDOCX FOR PAP SMEARS Procedures: PAP THIN PREP/UVM Screening HPV DNA PROBE Comments: [id number]
[2020-03-17 13:52] LABS: TSH (W/Ref FT4) 1.47 uIU/mL (0.36-3.74)
== END 2020-03-17 11:42 ==
LOC: NCHCN 11:22
PROVIDERS: PCP Nurse Practitioner Family; Visit Provider Nurse Practitioner Family
DX: Z00.00 Encounter for general adult medical examination without abnormal findings (principal); E04.1 Nontoxic single thyroid nodule; Z12.4 Encounter for screening for malignant neoplasm of cervix; Z01.419 Encounter for gynecological examination (general) (routine) without abnormal findings; Z11.51 Encounter for screening for human papillomavirus (HPV)
CPT/HCPCS: 88142; 84443; 87624

== ENCOUNTER 2020-03-25 03:50 | Outpatient (CLI) | payer OTHER, SELFPAY ==
--- NOTE | 2020-03-25 | DI.US_ITS ---
EXAM: US THYROID CLINICAL HISTORY: THYROID NODULE,E04.1. TECHNIQUE: Ultrasound thyroid performed using standard protocol. COMPARISON: No exams were available for comparison FINDINGS: ISTHMUS: 3 mm RIGHT LOBE: Size: 4.8 x 1.4 x 0.8 cm Echogenicity: Normal. Vascularity: Normal. Nodules: There is a 0.4 x 0.3 x 0.3 cm simple cyst in the right lobe. This corresponds to a TI-RADS 1 nodule. No suspicious nodules are seen in the right lobe. LEFT LOBE: Size: 4.3 x 0.8 x 0.9 cm Echogenicity: Normal. Vascularity: Normal. Nodules: None. OTHER FINDINGS: A sonographically benign-appearing lymph node is seen adjacent to each lobe of the th yroid gland. IMPRESSION: No suspicious thyroid nodules. DATA REPOSITORY:
== END 2020-03-25 04:10 ==
PROVIDERS: PCP Nurse Practitioner Family; Visit Provider Nurse Practitioner Family
DX: E04.1 Nontoxic single thyroid nodule (principal)
CPT/HCPCS: 76536

== ENCOUNTER 2020-12-16 10:44 | Outpatient (REF) | payer OTHER, SELFPAY ==
[2020-12-16 14:45] LABS: ESR < 1 mm/hr (0-20)
[2020-12-16 21:52] LABS: Rheumatoid Factor 11.9 IU/mL (<12.0)
[2020-12-19 14:18] LABS: ANA Interpretation Negative (Negative)
== END 2020-12-16 10:45 | disposition home or self-care (01) ==
LOC: NCHCN 10:44
PROVIDERS: PCP Nurse Practitioner Family; Visit Provider Nurse Practitioner Family
DX: L40.9 Psoriasis, unspecified (principal); M25.60 Stiffness of unspecified joint, not elsewhere classified
CPT/HCPCS: 85652; 86038; 86431

== ENCOUNTER 2021-06-07 01:57 | Outpatient (CLI) | payer OTHER, SELFPAY ==
[2021-06-07 12:35] LABS: Source Nasal/Nares
[2021-06-07 17:33] LABS: COVID-19 PCR Negative (Negative)
== END 2021-06-07 01:58 | disposition home or self-care (01) ==
LOC: LBO 01:57
PROVIDERS: Surgery; PCP Nurse Practitioner Family; Visit Provider Surgery
DX: Z20.822 Contact with and (suspected) exposure to COVID-19 (principal); Z01.818 Encounter for other preprocedural examination
CPT/HCPCS: 87635

== ENCOUNTER 2021-06-09 10:05 | Day surgery (SDC) | payer OTHER, SELFPAY ==
--- NOTE | 2021-06-08 09:32 | W.PM.HP.N ---
Date of service: 06/09/21 Time of Service: 10:45 Assessment and Plan Assessment and plan (1) Screening for colon cancer: Status: Acute Assessment and plan: Informed consent is obtained for the procedural (explained in simple layman's terms that?the pt and/or family could understand) explaining risks vs benefits and alternatives to the procedure and consequences if we do not do the procedure and need/rational for the procedure. Risks include but are not limited to: bleeding, infection, perforation of colon.? This would necessitate emergency surgery to repair the damage w/ possible ostomy; and other associated complications w/ the required surgery. ? Also complications of anesthesia including aspiration, SD/CVA/. ? ?I discussed with the?patient would they could expect during the procedure, post procedure and recovery time and risks.? The patient understands that they need to have a ride home after th History of Present Illness Narrative: yury Ray is a pleasant 50-year-old female who is here today to discuss her first screening colonoscopy.? She is quite healthy.? She denies any changes in bowel habits, melena, hematochezia, unintentional weight loss, abdominal pain.? She may have a family history of colon cancer in a maternal great grandmother.? She also thinks that she might have a small hemorrhoid which bleeds intermittently.? About a year and a half ago she did lose about 50 pounds secondary to stress from going through a divorce and Covid.? Her weight has been stable over the last year. Patient is here today for routine screening colonoscopy. She tolerated prep without any problems. Remaining discharge is a clear yellow. She is not currently having any abdominal pain or nausea. She did not have any bleeding with the prep. She has no chest pain or shortness of breath. She has no fever or productive cough. She has had no changes in her medications or health status. All questions are answered today. She is stable for the proposed procedure. Review of Systems All systems reviewed & are unremarkable except as noted in HPI and below PFSH All Active Problems Screening for colon cancer (Acute) Asthma (Chronic) Allergic rhinitis (Acute) Psoriasis (Chronic) Polycystic ovary syndrome (Acute) Anxiety (Chronic) Depression (Chronic) Surgical History Hx of wisdom tooth extraction Social History Smoking/Tobacco Use Status: Former Tobacco Use Quit Date: 03/04/94 Second Hand Exposure: No Smoking risk assessment performed?: Yes Alcohol Intake: current Alcohol Intake frequency: 3 or more drinks per day Alcohol type: beer and wine Drug use: Never Substance use type: marijuana Details: 06.08.21 smoked marijuana last, does use daily. Current gender identity: female Do you feel safe at home: Yes Do you feel safe in your relationship?: Yes History History 3 Para 2 Hx # Term Pregnancies 2 Multiple births Hx # Pregnancies Ectopic pregnancies AB induced Hx Number of Living Children 2 AB spontaneous 1 Meds Allergies and Home Medications Allergies Allergy/AdvReac Type Severity Reaction Status Date / Time amoxicillin [From Augmentin] Allergy Intermediate unknown Verified 06/09/21 10:32 bacitracin Allergy Intermediate unknown Verified 06/09/21 10:32 [From Neosporin ([id number])] clavulanic acid Allergy Intermediate unknown Verified 06/09/21 10:32 [From Augmentin] neomycin Allergy Intermediate unknown Verified 06/09/21 10:32 [From Neosporin ([id number])] polymyxin B Allergy Intermediate unknown Verified 06/09/21 10:32 [From Neosporin ([id number]-byz-rifcg)] prednisone AdvReac Severe Psychosis Unverified 06/09/21 10:32 promethazine [From Phenergan] AdvReac Severe Other (See Unverified 06/09/21 10:32 Comment) phenazopyridine AdvReac Intermediate Other (See Unverified 06/09/21 10:32 [From Pyridium] Comment) Home Medications Medication Instructions Recorded Confirmed Type dextroamphetamine-amphetamine 30 30 mg PO DAILY 09/15/19 06/09/21 History mg tablet loratadine 10 mg tablet (Claritin) 10 mg PO DAILY PRN 09/15/19 06/09/21 History lorazepam 0.5 mg tablet 0.5 mg PO DAILY PRN 09/15/19 06/09/21 History albuterol sulfate 90 mcg/actuation 2 puff INHALATION Q6H PRN 10/27/20 06/09/21 History aerosol inhaler (ProAir HFA) clobetasol 0.05 % scalp solution 1 applic TOPICAL DAILY 10/27/20 06/09/21 History bisacodyl 5 mg tablet,delayed 5 mg PO ONCE #4 tab 04/04/21 06/09/21 Rx release (Dulcolax (bisacodyl)) bupropion HCl 150 mg tablet,12 hr 150 mg PO DAILY 04/04/21 06/09/21 History sustained-release (Wellbutrin SR) polyethylene glycol 3350 17 17 g PO ONCE #238 g 04/04/21 06/09/21 Rx gram/dose oral powder Exam Narrative Exam Narrative: HYDRATION: Well hydrated HEAD, EYES, EARS, NECK, and Throat: Head is normocephalic, pupils equal, round, reactive to light and accommodation, ocular movement intact, sclera clear and no jaundice.? Dentition intact. NECK: Supple, no lymphadenopathy,? LUNGS: normal respiration, clear to auscultation HEART: Regular rate and rhythm, normal heart sounds,? EXTREMITY: No edema or cyanosis,? ABDOMEN: soft and non-tender today NEURO: CN: Intact.?
[2021-06-09 10:18] VITALS: BP 119/68; PULSE 62; RESP 20; TEMP 36.9; O2SAT 100
--- NOTE | 2021-06-09 10:31 | ANES.PREOP_ITS ---
General Info Date of Service Date Performed: 06/09/21 Height: 5 ft 7.75 in Weight: 70.9 kg Body Mass Index (BMI): 23.9 Surgical Procedure: Operation Date: 06/09/21 10:35 Proposed Procedure Side Surgeon bibiana Young, DO Meds Allergies and Home Medications Allergies Allergy/AdvReac Type Severity Reaction Status Date / Time amoxicillin [From Augmentin] Allergy Intermediate unknown Verified 06/09/21 10:32 bacitracin Allergy Intermediate unknown Verified 06/09/21 10:32 [From Neosporin ([id number])] clavulanic acid Allergy Intermediate unknown Verified 06/09/21 10:32 [From Augmentin] neomycin Allergy Intermediate unknown Verified 06/09/21 10:32 [From Neosporin ([id number])] polymyxin B Allergy Intermediate unknown Verified 06/09/21 10:32 [From Neosporin ([id number])] prednisone AdvReac Severe Psychosis Unverified 06/09/21 10:32 promethazine [From Phenergan] AdvReac Severe Other (See Unverified 06/09/21 10:32 Comment) phenazopyridine AdvReac Intermediate Other (See Unverified 06/09/21 10:32 [From Pyridium] Comment) Home Medication Medication Instructions Recorded dextroamphetamine-amphetamine 30 30 mg PO DAILY 09/15/19 mg tablet loratadine 10 mg tablet (Claritin) 10 mg PO DAILY PRN 09/15/19 lorazepam 0.5 mg tablet 0.5 mg PO DAILY PRN 09/15/19 albuterol sulfate 90 mcg/actuation 2 puff INHALATION Q6H PRN 10/27/20 aerosol inhaler (ProAir HFA) clobetasol 0.05 % scalp solution 1 applic TOPICAL DAILY 10/27/20 bisacodyl 5 mg tablet,delayed 5 mg PO ONCE #4 tab 04/04/21 release (Dulcolax (bisacodyl)) bupropion HCl 150 mg tablet,12 hr 150 mg PO DAILY 04/04/21 sustained-release (Wellbutrin SR) polyethylene glycol 3350 17 17 g PO ONCE #238 g 04/04/21 gram/dose oral powder Current Visit Medications: Current Medications Generic Name Dose Route Start Last Admin Trade Name Freq PRN Reason Stop Dose Admin Ringer's Solution 1,000 mls @ 80 mls/hr 06/09/21 06:00 IV 07/08/21 23:59 INFUSION LCINT IV Miscellaneous Supplies 1 each 06/09/21 06:00 Iv Access IV 07/08/21 23:59 DIRECTED CLINT Sodium Chloride 0 ml 06/09/21 06:00 Normal Saline Flush 10 Ml Syr IV 07/08/21 23:59 PRN PRN Sodium Chloride 0 ml 06/09/21 06:00 Normal Saline 10 Ml Vial IJ 07/08/21 23:59 DIRECTED PRN Sterile Water 0 ml 06/09/21 06:00 Water,Injection,Sterile 10 Ml Vial IJ 07/08/21 23:59 DIRECTED PRN PFSH Active Problems Active Problems: Problem Status Onset Code Depression F32.9 Anxiety F41.9 Polycystic ovary syndrome E28.2 Psoriasis L40.9 Allergic rhinitis J30.9 Asthma J45.909 Screening for colon cancer Z12.11 Medical History Medical History Comments:: Pt states she had nausea, states she is very sensitive some medications. Surgical History Surgical History Hx of wisdom tooth extraction Tobacco Smoking/Tobacco Use Status: Former Tobacco Use Passive smoking exposure: No Second hand exposure: No Alcohol Alcohol Intake: current Alcohol intake frequency: 3 or more drinks per day Alcoh ol type: beer and wine Substance Use Substance use: Never Substance use type: marijuana Details: 06.08.21 smoked marijuana last, does use daily. Prental History History 3 Para 2 Hx # Term Pregnancies 2 Multiple births Hx # Pregnancies Ectopic pregnancies AB induced Hx Number of Living Children 2 AB spontaneous 1 Vital Signs and Lab Results Vital Signs Most Recent Vital Signs in EMR: Most Recent Vital Signs Temp Pulse Resp BP Pulse Ox 36.9 C 62 20 119/68 100 06/09/21 10:18 06/09/21 10:18 06/09/21 10:18 06/09/21 10:18 06/09/21 10:18 Lab Results Blood Type / Crossmatch: No Data to Display Complete Blood Count: No Data to Display Complete Metabolic Panel: No Data to Display Liver Function Panel: No Data to Display Coagulation Panel: No Data to Display Cardiac Panel: No Data to Display Arterial Blood Gas: No Data to Display Venous Blood Gas: No Data to Display Pancreas Panel: No Data to Display Thyroid Panel: No Data to Display Infectious Disease: Coronavirus (COVID-19)(PCR) Negative (Negative) 06/07/21 11:15 06/07/21 Coronavirus 2019 Source Nasal/Nares 06/07/21 11:15 06/07/21 Blood Cultures: No Data to Display Toxicology Panel: No Data to Display Panel: No Data to Display Anesthesia Assessment and Plan Anesthesia History Personal History: No History of Anesthesia Complications Family History: No Family History of Anesthesia Complications Implantable Cardiac Device Does patient have a Pacemaker or an ICD?: No
[2021-06-09] MEDS: Lactated Ringers 1,000 ML 80 ML IV (10:44)
--- NOTE | 2021-06-09 10:50 | W.ANESPRE ---
General Info Date of Service Date Performed: 06/09/21 Height: 5 ft 7.75 in Weight: 70.9 kg Body Mass Index (BMI): 23.9 Surgical Procedure: Operation Date: 06/09/21 10:35 Proposed Procedure Side Surgeon bibiana Young, DO Meds Allergies and Home Medications Allergies Allergy/AdvReac Type Severity Reaction Status Date / Time amoxicillin [From Augmentin] Allergy Intermediate unknown Verified 06/09/21 10:32 bacitracin Allergy Intermediate unknown Verified 06/09/21 10:32 [From Neosporin ([id number])] clavulanic acid Allergy Intermediate unknown Verified 06/09/21 10:32 [From Augmentin] neomycin Allergy Intermediate unknown Verified 06/09/21 10:32 [From Neosporin (ahw-mer-likri)] polymyxin B Allergy Intermediate unknown Verified 06/09/21 10:32 [From Neosporin (vpn-opc-kyapc)] prednisone AdvReac Severe Psychosis Unverified 06/09/21 10:32 promethazine [From Phenergan] AdvReac Severe Other (See Unverified 06/09/21 10:32 Comment) phenazopyridine AdvReac Intermediate Other (See Unverified 06/09/21 10:32 [From Pyridium] Comment) Home Medication Medication Instructions Recorded dextroamphetamine-amphetamine 30 30 mg PO DAILY 09/15/19 mg tablet loratadine 10 mg tablet (Claritin) 10 mg PO DAILY PRN 09/15/19 lorazepam 0.5 mg tablet 0.5 mg PO DAILY PRN 09/15/19 albuterol sulfate 90 mcg/actuation 2 puff INHALATION Q6H PRN 10/27/20 aerosol inhaler (ProAir HFA) clobetasol 0.05 % scalp solution 1 applic TOPICAL DAILY 10/27/20 bisacodyl 5 mg tablet,delayed 5 mg PO ONCE #4 tab 04/04/21 release (Dulcolax (bisacodyl)) bupropion HCl 150 mg tablet,12 hr 150 mg PO DAILY 04/04/21 sustained-release (Wellbutrin SR) polyethylene glycol 3350 17 17 g PO ONCE #238 g 04/04/21 gram/dose oral powder Current Visit Medications: Current Medications Generic Name Dose Route Start Last Admin Trade Name Freq PRN Reason Stop Dose Admin Hyoscyamine Sulfate 0.125 mg 04/08/22 10:48 Hyoscyamine 0.125 Mg Sl/Oral/Chew SL DIRECTED PRN Ringer's Solution 1,000 mls @ 80 mls/hr 06/09/21 06:00 06/09/21 10:44 IV 07/08/21 23:59 80 mls/hr INFUSION CLINT Administration IV Miscellaneous Supplies 1 each 06/09/21 06:00 Iv Access IV 07/08/21 23:59 DIRECTED CLINT Ondansetron HCl 4 mg 06/09/21 10:48 Ondansetron 4 Mg/2 Ml Vial IVP Q4H PRN PRN Nausea / Vomiting Sodium Chloride 0 ml 06/09/21 06:00 Normal Saline Flush 10 Ml Syr IV 07/08/21 23:59 PRN PRN Sodium Chloride 0 ml 06/09/21 06:00 Normal Saline 10 Ml Vial IJ 07/08/21 23:59 DIRECTED PRN Sterile Water 0 ml 06/09/21 06:00 Water,Injection,Sterile 10 Ml Vial IJ 07/08/21 23:59 DIRECTED PRN PFSH Active Problems Active Problems: Problem Status Onset Code Screening for colon cancer Z12.11 Asthma J45.909 Allergic rhinitis J30.9 Psoriasis L40.9 Polycystic ovary syndrome E28.2 Anxiety F41.9 Depression F32.9 Medical History Medical History Comments:: Pt states she had nausea, states she is very sensitive some medications. Surgical History Surgical History Hx of wisdom tooth extraction Tobacco Smoking/Tobacco Use Status: Former Tobacco Use Passive smoking exposure: No Second hand exposure: No Alcohol Alcohol Intake: current Alcohol intake frequency: 3 or more drinks per day Alcohol type: beer and wine Substance Use Substance use: Never Substance use type: marijuana Details: 06.08.21 smoked marijuana last, does use daily. Prental History History 3 Para 2 Hx # Term Pregnancies 2 Multiple births Hx # Pregnancies Ectopic pregnancies AB induced Hx Number of Living Children 2 AB spontaneous 1 Vital Signs and Lab Results Vital Signs Most Recent Vital Signs in EMR: Most Recent Vital Signs Temp Pulse Resp BP Pulse Ox 36.9 C 62 20 119/68 100 06/09/21 10:18 06/09/21 10:18 06/09/21 10:18 06/09/21 10:18 06/09/21 10:18 Lab Results Blood Type / Crossmatch: No Data to Display Complete Blood Count: No Data to Display Complete Metabolic Panel: No Data to Display Liver Function Panel: No Data to Display Coagulation Panel: No Data to Display Cardiac Panel: No Data to Display Arterial Blood Gas: No Data to Display Venous Blood Gas: No Data to Display Pancreas Panel: No Data to Display Thyroid Panel: No Data to Display Infectious Disease: Coronavirus (COVID-19)(PCR) Negative (Negative) 06/07/21 11:15 06/07/21 Coronavirus 2019 Source Nasal/Nares 06/07/21 11:15 06/07/21 Blood Cultures: No Data to Display Toxicology Panel: No Data to Display Panel: No Data to Display Anesthesia Assessment and Plan Anesthesia History Personal History: No History of Anesthesia Complications Family History: No Family History of Anesthesia Complications Exercise Tolerance Exercise Tolerance: Metabolic Equivalents>4 Pertinent Negatives Pertinent Negatives: No Symptoms of GERD Cardiac & Pulmonary Exam Cardiac Exam: Normal S1/S2 Heart Sounds Pulmonary Exam: Clear Bilateral Breath Sounds Implantable Cardiac Device Does patient have a Pacemaker or an ICD?: No Airway Exam Known Difficult Airway: No Mallampati Class: 2 Mouth Opening: Normal (> 3cm) Thyromental Distance: Greater than 3 cm Neck Range of Motion: Full ROM Neck Circumference: Normal Teeth Condition: Normal Dentition ASA Classification ASA Score: ASA 2 Emergency Case?: No NPO Status NPO Status: NPO Clears >2 hours, Solids >8 hours Status Status: Not Per Patient and Pt. refuses testing, she was counseled on anesthesia risks Anesthesia Plan Resuscitation Status: Full Code Anesthesia Technique: General Anesthesia Airway Planned: Natural Airway Monitors Used: Standard Monitors
[2021-06-09 10:52] VITALS: BMI 23.9
[2021-06-09 11:38] VITALS: BP 121/75; PULSE 65; RESP 18; TEMP 36.8; O2SAT 100
--- NOTE | 2021-06-09 11:43 | W.ANESPOSTOP ---
Postoperative Evaluation Date, Time and Location Date Performed: 06/09/21 Time Performed: 11:44 Patient Location: Day Surgery Unit Vital Signs Most Recent Imported Vital Signs: Most Recent Vital Signs Temp Pulse Resp BP Pulse Ox 36.9 C 62 20 119/68 100 06/09/21 10:18 06/09/21 10:18 06/09/21 10:18 06/09/21 10:18 06/09/21 10:18 Most Recent Manually Entered Vital Signs: Adult Blood Pressure: 121/75 Heart Rate: 65 Respirations: 18 Oxygen Saturation (%): 100 Temperature (C): 36.8 C Pain Score (0-10 Scale): 0 Pain Score Most Recent Pain Score: Most Recent Pain Score Pain Level 0 06/09/21 10:18 Assessment Mental Status: Awake (Alert & Oriented to Patient Baseline) Airway and Respiratory Function: Patent airway with normal (patient baseline) respiratory exam Cardiovascular Function: Hemodynamically Stable Hydration Status: Adequately Hydrated Nausea & Vomiting: No Nausea or Vomiting Pain: Pt. Denies Any Pain Peripheral Nerve Block: Patient did not receive a nerve block
[2021-06-09 11:46] VITALS: BP 121/75; PULSE 65; RESP 18; TEMPC 36.8; O2SAT 100
--- NOTE | 2021-06-09 11:56 | PDOC.DSDIS_ITS ---
Discharge Plan Disposition Patient Disposition: HOME Condition: Good Discharge Details Reason For Visit: colon scope Attending Provider: Sanjana Young Primary Care Provider: Anaid Denny Home Meds and New Rx's Prescriptions: Continued bupropion HCl [Wellbutrin SR] 150 mg tablet sustained-release 12 hr 150 mg PO DAILY 0RF clobetasol 0.05 % solution 1 applic topical DAILY 0RF albuterol sulfate [ProAir HFA] 90 mcg/actuation HFA aerosol inhaler 2 puff inhalation Q6H PRN0RF lorazepam 0.5 mg Tablet 0.5 mg PO DAILY PRN0RF dextroamphetamine-amphetamine 30 mg Tablet 30 mg PO DAILY 0RF loratadine [Claritin] 10 mg Tablet 10 mg PO DAILY PRN0RF Discontinued bisacodyl [Dulcolax (bisacodyl)] 5 mg tablet,delayed release (DR/EC) 5 mg PO ONCE Qty: 4 0RF Rx Instructions: Take according to provider's instructions for colonoscopy prep. polyethylene glycol 3350 17 gram/dose powder 17 g PO ONCE Qty: 238 0RF Rx Instructions: To be taken as directed by prescriber's office for colonoscopy prep. Discharge Instructions Additional Instructions: DSU Colonoscopy Post- Op Instructions Instructions for Everyone who is given Anesthesia: For your safety, please do the following for the next twenty-four (24) hours: *Do Not operate a motor vehicle (car, truck, motorcycle, etc.) *Do Not drink alcoholic beverages or use any recreational drugs for the first 24 hours or while taking pain medications. The medications in your body may have a reaction that can be dangerous. *Do Not make any important decisions or sign any important papers. Findings: Follow up: 1. No lifting over 20 pounds or strenuous activity for the first 24 hours after your procedure. After 24 hours there are no restrictions on your activity but you may feel fatigued for a few days. 2. After you arrive home you may have a light meal and return to your normal diet as you can tolerate it without feeling sick to your stomach. 3. You may have a bloated, gaseous feeling in your belly (abdomen) after a colonoscopy. Passing gas and belching will help. Walking or lying down on your left side with your knees flexed may relieve the discomfort. Call the office at [phone] (Office) or [phone] (Hospital) right away if you notice any of the following: a.Vomiting of blood or ?coffee ground stools?. b.Rectal bleeding 1Tbsp, blood clots or continuous bleeding. c.Severe belly (abdominal) pain. d.A hard distended belly (abdomen) and an inability to pass gas. 4. Please don?t expect to have a normal BM (bowel movement) for 2-3 days after your procedure. 5. If there are questions regarding the findings of your procedure, please contact your doctor 6. If you are unable to contact your doctor with a problem, contact the hospital at [phone]. 7. Continue all your regular medications unless directed otherwise. I understand the above instructions and have no questions. Signature of Patient or Adult Escort Name of Responsible Adult Escort Signature of Nurse Date/Time Activity:: see above Diet:: see above Discharge Orders Discharge Orders: Discharge Order (Routine); Ordered 06/09/21 Ordered By: Sanjana Young DS: Diagnosis Discharge Diagnosis (1) Screening for colon cancer: Status: Acute
--- NOTE | 2021-06-09 11:58 | W.COLOREPORT ---
Colonoscopy Report Date of procedure: 06/09/21 Pre-op diagnosis general: screen Surgeon: Sanjana Young Anesthesia Type: General:No Airway Estimated blood loss (mL): 0 Pathology: none sent Complications: None Disposition: same day Prep: Miralax/Dulcolax Retraction Time: 8mins Procedure Description: After informed consent was obtained the patient was taken to the procedure room and placed in a left decubitous position. Monitors were applied and a time out was done. The patients name, date of , procedure, allergies to medications and metal in their body was reviewed. The patient was then sedated. Once sedated and comfortable a rectal exam was done. External exam was normal. Internal exam revealed a normal sphincter tone and no palpable masses. The scope was then introduced and retrofelexed. No internal hemorrhoids were identified. The scope was then advanced to the cecum w/out difficulty. The TI and appendiceal orifice were identified. The prep was BBPS 3 in all segments for total of 9. There are no diverticula, AVMs, polyps visualized today. The mucosa is pink and healthy with a normal vascular pattern. The scope was then slowly retracted over minutes back into the rectum. . The scope was removed and the patient was woken up and taken back to Same day surgery in stable condition. The patient tolerated the procedure well and there were no immediate complications. Follow up: The patient should follow up in 10 years unless they develop changes in bowel habits or other new gastrointestinal complaints.
[2021-06-09 12:09] VITALS: BP 114/74; PULSE 65; RESP 17; TEMP 36.8; O2SAT 100
== END 2021-06-09 12:22 | disposition home or self-care (01) ==
PROVIDERS: PCP Nurse Practitioner Family; Visit Provider Surgery
PROC: 0DJD8ZZ Inspection of Lower Intestinal Tract, Via Natural or Artificial Opening Endoscopic (ICD-10-PCS; CPT 45378; principal; 2021-06-09 10:30)
DX: Z12.11 Encounter for screening for malignant neoplasm of colon (principal); J45.909 Unspecified asthma, uncomplicated; E28.2 Polycystic ovarian syndrome
CPT/HCPCS: 45378

== ENCOUNTER 2022-11-14 18:37 | Outpatient (REF) | payer OTHER, SELFPAY ==
[2022-11-14 15:51] LABS: MCH 34.2 pg (27.0-33.0); MCHC 34.2 % (32.0-36.0); MCV 100 fL (80-95); MPV 10.9 fL (8.0-11.0); Platelet Count 222 10^3/uL (130-400); RDW 12.8 % (11.7-14.6); RDW-SD 46.9 fL; WBC 7.93 10^3/uL (4.4-10.8)
[2022-11-14 16:24] LABS: ALT 27 U/L (14-59); AST 19 U/L (15-37); Albumin 4.1 g/dL (3.4-5.0); Alkaline Phosphatase 55 U/L (46-116); Anion Gap 5.4 mmol/L (3-11); BUN 13 mg/dL (7-18); CO2 28.6 mmol/L (21.0-32.0); CREATININE 0.8 mg/dL (0.55-1.02); Calcium 8.9 mg/dL (8.5-10.1); Chloride 100 mmol/L (98-107); Estimated GFR 89.71 (mL/min/1.73m2); Glucose 125 mg/dL (74-106); Potassium 4.6 mmol/L (3.5-5.1); Sodium 134 mmol/L (136-145); TSH (W/Ref FT4) 1.98 uIU/mL (0.36-3.74)
[2022-11-14 16:56] LABS: Calculated LDL 84 mg/dL (<100); Cholesterol 185 mg/dL (<200); HDL Cholesterol 96 mg/dL (40-60); Triglyceride 28 mg/dL (<150)
[2022-11-15 18:29] LABS: Vitamin B12 310 pg/mL (193-986)
[2022-11-15 18:32] LABS: Folate > 20.0 ng/mL (8.6-20.0)
== END 2022-11-14 18:38 | disposition home or self-care (01) ==
LOC: NCHCN 18:37
PROVIDERS: PCP Nurse Practitioner Family; Visit Provider Nurse Practitioner Family
DX: Z00.00 Encounter for general adult medical examination without abnormal findings (principal); E03.9 Hypothyroidism, unspecified; D75.89 Other specified diseases of blood and blood-forming organs
CPT/HCPCS: 80053; 80061; 85027; 84443

== ENCOUNTER 2022-11-15 17:15 | Outpatient (REF) | payer OTHER, SELFPAY | END 2022-11-15 17:16 | disposition home or self-care (01) | LOC: NCHCN 17:15 | PROVIDERS: PCP Nurse Practitioner Family; Visit Provider Nurse Practitioner Family | DX: E03.9 Hypothyroidism, unspecified (principal); Z00.00 Encounter for general adult medical examination without abnormal findings | CPT/HCPCS: 82607; 82746 ==

== ENCOUNTER → 2023-09-02 03:20 | Outpatient (CLI) | payer OTHER, SELFPAY ==
--- NOTE | 2023-09-02 | DI.MAMMO_ITS ---
Exam(s) MAMMO SCREENING EXAM: MAMMO SCREENING CLINICAL HISTORY: SCREENING, Z12.31. TECHNIQUE: Bilateral full field digital CC and MLO mammographic images were obtained with 3D tomosyn thesis and utilizing computer aided detection (CAD). COMPARISON: Prior mammograms were reviewed. FINDINGS: There has been no significant change in the appearance and distribution of the fibroglandular tissue. No new left breast findings. There is a new microcalcification group in the right breast located 4 cm in from the nipple, slightly medial of center. Spot Mag views recommended. There is no significant architectural distortion nor skin thickening-retraction. IMPRESSION: 1. No radiographic evidence of malignancy in left breast. 2. New small microcalcification group in the right breast. Spot Mag 2D views recommended. BI-RADS Category 0 - Assessment Incomplete: Need additional imaging evaluation Breast Density - Category C - Heterogeneously dense Breast density Category C or D implies that the patient has dense breast tissue. Dense breast tissue can make it harder to find cancer on a mammogram. Dense breast tissue is also associated with an incr eased risk of breast cancer. This information about the result of the mammogram report was provided to the patient to raise their awareness. Use this report when you speak with the patient about their risks for breast cancer, which includes their family history. At that time, you may recommend additional screening tests (Ultrasoun d or MRI) as these tests may add significant information. A negative radiographic report should not delay biopsy if a dominant or clinically suspicious mass is present. Up to ten percent of cancers are not identified on mammography. A negative report may reinforce clinical impression. Adenosis and dense breasts may obscure an underlying neoplasm. False positive reports average 6 to 10%. Patient will receive a letter notifying them of these results.
== END ==
PROVIDERS: PCP Nurse Practitioner Family; Visit Provider Nurse Practitioner Family
DX: Z12.31 Encounter for screening mammogram for malignant neoplasm of breast (principal)
CPT/HCPCS: 77063; 77067

== ENCOUNTER → 2023-09-06 01:39 | Outpatient (CLI) | payer OTHER, SELFPAY ==
--- NOTE | 2023-09-06 10:30 | DI.MAMMO_ITS ---
Exam(s) MG MAMMO SCREEN CALL BACK UNI EXAM: MAMMO SCREEN CALL BACK UNI -RIGHT CLINICAL HISTORY: F/U ABNL MAMMO, NEW MICROCALCIFICATION GROUP RT BREAST. TECHNIQUE: Unilateral right breast 2D spot mammographic images obtained with , using computer assist ed detection/iCAD COMPARISON: Prior mammograms were reviewed. This additional imaging was performed due to findings described on the recent screening mammogram of 09/02/2023. Most recent mammogram prior to that was February 2020. FINDINGS: DIAGNOSTIC MAMMOGRAM: Additional 2D mammographic views performed todayreveal the microcalcification group to be presently e xhibiting benign appearance Six-month follow-up recommended. IMPRESSION: 1. Presently benign-appearing microcalcification group in the right breast Appropriate follow-up as discussed by myself with the patient today is repeat right breast mammogram with spot Mag views in 6 months.. The patient was informed of these findings and recommendations by myself prior to leaving the departm ent today. BI-RADS Category 3 - 6 month - Probably Benign Finding: Recommend follow-up mammography in 6 months Breast Density - Category C - Heterogeneously dense Breast density Category C or D implies that the patient has dense breast tissue. Dense breast tissue can make it harder to find cancer on a mammogram. Dense breast tissue is also associated with an incr eased risk of breast cancer. This information about the result of the mammogram report was provided to the patient to raise their awareness. Use this report when you speak with the patient about their risks for breast cancer, which includes their family history. At that time, you may recommend additional screening tests (Ultrasoun d or MRI) as these tests may add significant information. A negative radiographic report should not delay biopsy if a dominant or clinically suspicious mass is present. Up to ten percent of cancers are not identified on mammography. A negative report may reinforce clinical impression. Adenosis and dense breasts may obscure an underlying neoplasm. False positive reports average 6 to 10%. Patient will receive a letter notifying them of these results.
== END ==
PROVIDERS: PCP Nurse Practitioner Family; Visit Provider Nurse Practitioner Family
DX: R92.8 Other abnormal and inconclusive findings on diagnostic imaging of breast (principal); R92.331 Mammographic heterogeneous density, right breast
CPT/HCPCS: 77063; 77067

== ENCOUNTER 2023-11-19 14:57 | Outpatient (REF) | payer OTHER, SELFPAY ==
[2023-11-19 16:15] LABS: HCT 39.3 % (36.0-46.0); HGB 13.1 g/dL (11.2-15.7); MCHC 33.3 % (32.0-36.0); MCV 102 fL (80-95); MPV 10.6 fL (8.0-11.0); Platelet Count 246 10^3/uL (130-400); RBC 3.85 10^6/uL (3.93-5.22); RDW 12.6 % (11.7-14.6); RDW-SD 47.4 fL; WBC 7.97 10^3/uL (4.4-10.8)
[2023-11-19 16:38] LABS: ALT 24 U/L (14-59); AST 23 U/L (15-37); Alkaline Phosphatase 63 U/L (46-116); Anion Gap 9.5 mmol/L (3-11); BUN 10 mg/dL (7-18); Bilirubin, Total 1.59 mg/dL (0.2-1.0); CO2 28.5 mmol/L (21.0-32.0); Calcium 8.6 mg/dL (8.5-10.1); Calculated LDL 79 mg/dL (<100); Chloride 99 mmol/L (98-107); Cholesterol 194 mg/dL (<200); Estimated GFR 68.21 (mL/min/1.73m2); Glucose 120 mg/dL (74-106); HDL Cholesterol 108 mg/dL (40-60); Potassium 3.8 mmol/L (3.5-5.1); Sodium 137 mmol/L (136-145); TSH (W/Ref FT4) 1.77 uIU/mL (0.36-3.74); Total Protein 6.9 g/dL (6.4-8.2); Triglyceride 37 mg/dL (<150)
== END 2023-11-19 14:58 | disposition home or self-care (01) ==
LOC: NCHCN 14:57
PROVIDERS: PCP Nurse Practitioner Family; Visit Provider Nurse Practitioner Family
DX: Z00.00 Encounter for general adult medical examination without abnormal findings (principal); E03.9 Hypothyroidism, unspecified
CPT/HCPCS: 80053; 80061; 85027; 84443

== ENCOUNTER 2023-12-11 04:48 | Outpatient (CLI) | payer OTHER, SELFPAY ==
[2023-12-11 17:06] LABS: TSH (W/Ref FT4) 1.78 uIU/mL (0.36-3.74)
[2023-12-12 20:56] LABS: FSH 36.1 mIU/mL (See Note)
== END 2023-12-11 04:49 | disposition home or self-care (01) ==
LOC: LBO 04:48
PROVIDERS: PCP Nurse Practitioner Family; Visit Provider Obstetrics & Gynecology
DX: N95.1 Menopausal and female climacteric states (principal); N93.8 Other specified abnormal uterine and vaginal bleeding; Z30.431 Encounter for routine checking of intrauterine contraceptive device; J45.909 Unspecified asthma, uncomplicated; F32.9 Major depressive disorder, single episode, unspecified
CPT/HCPCS: 36415; 83001; 84443

== ENCOUNTER 2024-02-21 00:05 | Outpatient (CLI) | payer OTHER, SELFPAY ==
--- NOTE | 2024-02-21 10:57 | DI.MAMMO_ITS ---
Exam(s) MG MAMMO DIAGNOSTIC UNI EXAM: MG MAMMO DIAGNOSTIC UNI CLINICAL HISTORY: 6-mo f/u Mammo, benign-appearing microcalcification group, rt breast. TECHNIQUE: Craniocaudal and mediolateral oblique Full Field Digital Mammography views of the right b reast with Computer Aided Diagnosis followed by Tomosynthesis. COMPARISON: Comparison is made with prior examinations. FINDINGS: Mammography/Tomosynthesis: Masses/Architectural Distortion: None seen. Microcalcifictions: No suspicious pleomorphic-type are seen. The small cluster of calcifications in t he right central breast are unchanged. Skin Thickening/Nipple Retraction: None. IMPRESSION: 1. No evidence of malignancy is noted. 2. A six-month follow-up right mammogram is requested for re-evaluation. 3. The findings were discussed with the patient on the date of the examination. BI-RADS Category 3 - 6 month - Probably Benign Finding: Recommend follow-up imaging in 6 months Breast Density - Category B - Scattered areas of fibroglandular density Breast density Category C or D implies that the patient has dense breast tissue. Dense breast tissue can make it harder to find cancer on a mammogram. Dense breast tissue is also associated with an incr eased risk of breast cancer. This information about the result of the mammogram report was provided to the patient to raise their awareness. Use this report when you speak with the patient about their risks for breast cancer, which includes their family history. At that time, you may recommend additional screening tests (Ultrasoun d or MRI) as these tests may add significant information. A negative radiographic report should not delay biopsy if a dominant or clinically suspicious mass is present. Up to ten percent of cancers are not identified on mammography. A negative report may reinforce clinical impression. Adenosis and dense breasts may obscure an underlying neoplasm. False positive reports average 6 to 10%. Patient will receive a letter notifying them of these results.
== END 2024-02-21 00:25 ==
LOC: DI 00:05
PROVIDERS: PCP Nurse Practitioner Family; Visit Provider Nurse Practitioner Family
DX: Z12.31 Encounter for screening mammogram for malignant neoplasm of breast (principal); R92.8 Other abnormal and inconclusive findings on diagnostic imaging of breast
CPT/HCPCS: 77061; 77065; G0279

== ENCOUNTER 2025-02-18 09:16 | Outpatient (REF) | payer MEDICAID, SELFPAY ==
--- NOTE | 2025-02-18 08:00 | PAPFT_PTH ---
PATIENT: Alexandria Ray LOC: [facility]#:[id number] AGE/SX: 54/F ROOM: RE02/18/[address]: Anaid Denny : 1970 BED: DIS: 02/18/2025 SPEC #: [id number] RECD: 02/18/25 18:06 STATUS: THUAN SHANKAR #: [id number] MIGUEL: 02/18/25 08:[address]: Anaid Denny DEPT: [facility] Cytology RECD BY: Edel Burch Tissues: 1 - CX/ENDOCX FOR PAP SMEARS Procedures: PAP THIN PREP/[facility] Screening HPV DNA PROBE Comments: [id number] (HPV 16 & 18/45)
== END 2025-02-18 09:17 | disposition home or self-care (01) ==
LOC: NCHCN 09:16
PROVIDERS: PCP Nurse Practitioner Family; Visit Provider Nurse Practitioner Family
DX: Z12.4 Encounter for screening for malignant neoplasm of cervix (principal)
CPT/HCPCS: 88142; 87624